=== PATIENT | female | born 1950 | race African-American/Black ===

== ENCOUNTER 2022-09-26 08:10 | Day surgery (SDC) | payer OTHER ==
[2022-09-24 11:58] VITALS: BMI 24.7
[2022-09-26] MEDS ORDERED: BUPIVACAINE HCL/PF 0.5% (5MG/ML) 10 ML VIAL ONE (09:52)
[2022-09-26] MEDS ORDERED: MIDAZOLAM HCL 2 MG/2 ML SINGLE DOSE VIAL ONE (10:09)
[2022-09-26] MEDS ORDERED: PROPOFOL 60 ML ONE (10:09)
[2022-09-26] MEDS ORDERED: ONDANSETRON 4 MG/2 ML VIAL IVPUSH PRN (11:44)
[2022-09-26] MEDS ORDERED: oxyCODONE HCL 5 MG TABLET PO PRN (11:44)
[2022-09-26] MEDS ORDERED: LACTATED RINGERS SOLUTION 1,000 ML IV SCH (11:45)
[2022-09-26] MEDS ORDERED: FENTANYL CITRATE/PF 50 MCG/ML VIAL ONE (11:48)
[2022-09-26 14:12] VITALS: RESP 16; TEMP 97.7
[2022-09-26 14:15] VITALS: BP 147/86; PULSE 64
== END 2022-09-26 13:45 | disposition home or self-care (01) ==
LOC: FASU 08:10
PROVIDERS: ATTEND Orthopaedic Surgery
PROC: 01N40ZZ Release Ulnar Nerve, Open Approach (ICD-10-PCS; principal; 2022-09-26 10:38)
DX: G56.21 Lesion of ulnar nerve, right upper limb (principal)
CPT/HCPCS: 94760